=== PATIENT | female | born 2000 | race Caucasian/White ===

== ENCOUNTER → 2020-06-22 13:09 | Outpatient (CLI) | payer OTHER, SELFPAY ==
--- NOTE | 2020-06-22 13:10 | DI.US.S_ITS ---
PROCEDURE: US ABDOMEN LIMITED INDICATIONS: ?BILATERAL INGUINAL HERNIA TECHNIQUE: Real-time focused scanning was performed of the abdomen, with image documentation. COMPARISON: CT abdomen/pelvis same day.. FINDINGS: No sonographic evidence of bilateral inguinal hernias. IMPRESSION: No inguinal hernia found bilaterally. Dictated by: Tam Stewart M.D. on 06/22/2020 at 14:26 Approved by: Tam Stewart M.D. on 06/22/2020 at 14:27
== END ==
PROVIDERS: PCP Physician Assistant; Referring Provider Surgery; Visit Provider Surgery
DX: K40.90 Unilateral inguinal hernia, without obstruction or gangrene, not specified as recurrent (principal)
CPT/HCPCS: 76705

== ENCOUNTER → 2020-09-16 11:23 | Outpatient (CLI) | payer OTHER, SELFPAY ==
[2020-09-16 20:30] LABS: COVID19 - ORCAS (NP or Nasal) Negative (Negative)
== END ==
PROVIDERS: PCP Physician Assistant; Visit Provider Family Medicine
DX: Z20.822 Contact with and (suspected) exposure to COVID-19 (principal)
CPT/HCPCS: U0003